=== PATIENT | female | born 1965 | race Caucasian/White ===

== ENCOUNTER 2022-02-28 11:21 | Emergency (ER) | payer BC, SELFPAY ==
[2022-02-28 11:58] VITALS: BP 177/78; PULSE 86; RESP 18; TEMP 36.7; O2SAT 100
[2022-02-28 11:59] VITALS: BP 177/78; PULSE 86; RESP 18; TEMP 36.7; O2SAT 100
--- NOTE | 2022-02-28 12:57 | ED.URI ---
HPI - URI/Sore Throat General Chief Complaint: Upper Respiratory Infection Stated Complaint: Sore Throat Time Seen by Provider: 02/28/22 12:52 Source: patient Mode of arrival: ambulatory Limitations: no limitations History of Present Illness HPI Narrative: Patient presents today [place] 3 history of sore throat and mild cough. Denies fever or any additional symptoms. She currently rates her pain 8/10, which increases with swallowing. She has been taking ibuprofen without relief. Denies needs known sick contacts. Related Data Home Medications Medication Instructions Recorded Confirmed alprazolam 0.25 mg tablet 0.25 mg PO DAILY 02/28/22 02/28/22 escitalopram oxalate 10 mg tablet 10 mg PO DAILY 02/28/22 02/28/22 fingolimod 0.5 mg capsule ([employer]) 0.5 mg PO DAILY 02/28/22 02/28/22 hydrochlorothiazide 25 mg tablet 25 mg PO DAILY 02/28/22 02/28/22 methenamine hippurate 1 gram tablet 1 g PO BID 02/28/22 02/28/22 potassium chloride 10 mEq 10 meq PO DAILY 02/28/22 02/28/22 tablet,extended release trazodone 50 mg tablet 50 mg PO DAILY 02/28/22 02/28/22 venlafaxine 75 mg capsule,extended 75 mg PO DAILY 02/28/22 02/28/22 release 24 hr Allergies Allergy/AdvReac Type Severity Reaction Status Date / Time clindamycin Allergy Itching Verified 02/28/22 11:56 dicyclomine Allergy Other Verified 02/28/22 11:56 mirtazapine Allergy Other Verified 02/28/22 11:56 nortriptyline [From Pamelor] Allergy Other Verified 02/28/22 11:56 pentazocine [From Talwin] Allergy Other Verified 02/28/22 11:56 Review of Systems Review of Systems: CONSTITUTIONAL: Denies body aches, fever, chills, or sweats. EYES: Denies visual changes, redness, or discharge. ENT: Denies rhinorrhea, congestion, or otalgia.+ sore throat CARDIOVASCULAR: Denies chest pain, palpitations, or edema. RESPIRATORY: Denies dyspnea.+ mild cough GASTROINTESTINAL: Denies abdominal pain, nausea, vomiting, or diarrhea. GENITOURINARY: Denies dysuria or hematuria. SKIN: Denies rash, itching, or wounds. MUSCULOSKELETAL: Denies back pain, joint pain, or myalgia. NEUROLOGIC: Denies headache, numbness, tingling, or weakness. PSYCH: Denies depression or anxiety. PMFSH Comments At time of signature, I have reviewed and agree with nursing past medical, surgical, social and family history unless otherwise noted. Please see nursing chart for further information. There is no relevant family history pertinent to the presenting complaint Exam Narrative: GENERAL: Well-appearing, well-nourished, and in no acute distress. HEAD: Normocephalic, atraumatic. EYES: EOMI. No redness or drainage. Conjunctivae normal. ENT: Mucous membranes pink and moist. Nares clear. No rhinorrhea. TMs normal bilaterally. Throat erythematous with mild edema. No exudate. Uvula midline. NECK: Normal AROM. Supple. Bilaterally anterior cervical chain lymphadenopathy CHEST: No respiratory distress. Clear to auscultation. HEART: Regular rate and rhythm. No murmur appreciated. Normal peripheral pulses. EXTREMITIES: Normal range of motion. No edema. SKIN: Warm, dry, no rash. Capillary refill normal. Normal skin turgor. NEURO: No focal deficits. Alert and oriented x3. Gait steady. PSYCH: Normal affect. No signs of depression or anxiety. Course Course Level of Care: Express Care Visit Vital Signs Vital signs: Vital Signs Temperature 98.1 F 02/28/22 11:58 Pulse Rate 86 02/28/22 11:58 Respiratory Rate 18 02/28/22 11:58 Blood Pressure 177/78 H 02/28/22 11:58 Pulse Oximetry 100 02/28/22 11:58 Oxygen Delivery Room Air 02/28/22 11:58 Temperature 98.1 F 02/28/22 11:59 Pulse Rate 86 02/28/22 11:59 Respiratory Rate 18 02/28/22 11:59 Blood Pressure 177/78 H 02/28/22 11:59 Pulse Oximetry 100 02/28/22 11:59 Oxygen Delivery Room Air 02/28/22 11:59 Reviewed. Pt has been instructed to follow up with her PCP regarding her elevated blood pressure today. MDM - URI/Sore Throat
== END 2022-02-28 13:19 | disposition home or self-care (01) ==
PROVIDERS: Emergency Provider Nurse Practitioner
DX: J02.8 Acute pharyngitis due to other specified organisms (principal)
CPT/HCPCS: 87081; 87880; 99203; G0463